=== PATIENT | female | born 1965 ===

== ENCOUNTER 2020-12-31 10:08 | Day surgery (SDC) | payer OTHER ==
[~2020-12-31 10:08] MED LIST: LORAZEPAM0.5 MG PO; PERCOCET 5/3251 TAB PO; RECTICARE30 GM TP
== END 2020-12-31 15:35 | disposition home or self-care (01) ==
LOC: AMB-ENDOS 10:08
PROVIDERS: ATTEND Surgery
DX: C7A.012 Malignant carcinoid tumor of the ileum (principal); Z20.822 Contact with and (suspected) exposure to COVID-19